=== PATIENT | female | born 1970 | race Caucasian/White ===

== ENCOUNTER 2017-11-08 12:30 | Observation (INO) | payer BC ==
[2017-11-08] MEDS ORDERED: Naloxone 0.4 MG/ML Syringe IVPUSH ONE (12:41)
[2017-11-08] MEDS ORDERED: Naloxone 0.4 MG/ML Syringe ONE (12:42)
[2017-11-08] MEDS: Naloxone 0.4 MG/ML Syringe IVPUSH ONE ×2 (12:56→15:10)
[2017-11-08] MEDS ORDERED: Ondansetron 4 MG/2 ML SDV IVPUSH ONE (12:59)
[2017-11-08 13:56] LABS: CHLORIDE,CL 92 mmol/L (98-107); SODIUM,NA 131 mmol/L (136-145)
--- NOTE | 2017-11-08 13:57 | CT ---
EXAMINATION: Non contrast CT head. Coronal and sagittal reformats. HISTORY: Altered mental status FINDINGS: No evidence of intra or extra axial hemorrhage, mass, midline shift, hydrocephalus or edema. No hypoattenuation changes in the major vascular territories to suggest acute infarct. No abnormal intracranial calcifications are detected. No evidence of substantial vascular calcifications. Paranasal sinuses and mastoid air cells are well aerated without substantial findings. Orbits and globes are symmetric. Pituitary fossa appears unremarkable. Calvarium is intact. No evidence of skull fracture. IMPRESSION: No acute intracranial findings.
--- NOTE | 2017-11-08 14:43 | CR ---
EXAMINATION: Portable chest radiograph. HISTORY: Shortness of breath. FINDINGS: The trachea is midline. The cardiomediastinal silhouette is within normal limits. No pulmonary infiltrates, effusions or pneumothorax. Osseous structures appear unremarkable. IMPRESSION: No acute cardiopulmonary process.
[2017-11-08] MEDS ORDERED: Polyethylene Glycol 3350 Powder 17 GM Packet PO PRN (15:24)
[2017-11-08] MEDS ORDERED: Docusate Sodium 100 MG Cap PO PRN (15:24)
[2017-11-08] MEDS ORDERED: Ondansetron 4 MG/2 ML SDV IVPUSH PRN (15:24)
[2017-11-08] MEDS ORDERED: Ondansetron 4 MG Tab.DIS PO PRN (15:24)
[2017-11-08] MEDS ORDERED: Enoxaparin 40 MG/0.4 ML Syringe SUBCUT SCH (15:30)
[2017-11-08] MEDS ORDERED: Sodium Chloride 0.9% 1,000 ML IV SCH (15:30)
[2017-11-08] MEDS ORDERED: Iopamidol 755 MG/ML 500 ML Multipack Bottle IVPUSH STA (16:01)
[2017-11-08] MEDS ORDERED: Sodium Chloride 0.9% 1,000 ML IV ONE ×2 (16:07→19:09)
--- NOTE | 2017-11-08 16:25 | CT ---
CT of the abdomen and pelvis with and without contrast. HISTORY: Pain TECHNIQUE: Axial CT images were obtained of the abdomen and pelvis before and following the administration of 100 mL of Isovue-370. Coronal and sagittal reconstructions obtained. FINDINGS: The lung bases are clear, no pleural effusion. The liver, spleen, adrenal glands, and pancreas appear unremarkable for noncontrast examination. Cholecystectomy clips are noted. There is no bulky retroperitoneal lymphadenopathy. No abdominal ascites. There are no calcifications noted within the kidneys or along the courses of the ureters bilaterally. The kidneys otherwise enhance and function symmetrically without evidence of obstructive uropathy. The large and small bowel are normal in caliber without evidence of obstruction. The appendix appears normal. There is no bulky pelvic lymphadenopathy. No free fluid. No free air. There is a Robertson catheter within the urinary bladder. Several right ovarian cysts are noted measuring up to 5.1 x 3.6 cm. The visualized osseous structures appear normal. IMPRESSION: 1. No acute findings within the abdomen or pelvis. 2. Several small right ovarian cyst measuring up to 5 x 3.6 cm. Follow-up in several menstrual cycles with ultrasound may be beneficial.
--- NOTE | 2017-11-08 18:46 | PCM.HP ---
H&P History of Present Illness - General Date of Service: 11/08/17 Admit Problem/Dx: Admission Diagnosis/Problem Admission Diagnosis/Problem Altered mental status - History of Present Illness Initial Comments - Free Text/Narative: Tracy Connor is a 47 y/o female who presented to the ER complaning of nausea and projectile vomiting. The patient states she was feeling fine until yesterday when she drank 6 beers with her friends and then went home and had her left over soup from few days ago. She then proceeded to take one pill of tramadol for her back pain. Soon after taking the tramadol she started feeling nauseous and having projectile vomiting. No blood in emesis. No abdoinal pain or diarrhea. she states she could not hold anything down. Denies any illicit drug use. No one else is sick at home. She was the only one who had the left over soup. Denies any abdominal pain, dysuria, diarrhea. No chest pain or shortness of breath. In the ER, the patient was started on BiPAP due to being hypercapnic. In addition, she was somewhat lethargic and was administered 3 doses of narcan which helped her wake up. 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 Headache Pain Score (Numeric/FACES): 2 - Related Data Allergies/Adverse Reactions: Allergies Allergy/AdvReac Type Severity Reaction Status Date / Time cephalexin monohydrate Allergy Hives Verified 11/08/17 12:42 [From Keflex] hydrocodone Allergy Other Verified 11/08/17 12:42 Penicillins Allergy Difficulty Verified 11/08/17 12:42 Swallowing shellfish derived Allergy Facial Verified 11/08/17 12:42 Swelling Home Medications: Home Meds Albuterol [Ventolin HFA] 2 puff INH Q6H 06/11/13 [History] Spironolactone [Aldactone] 50 mg PO DAILY 06/11/13 [History] Venlafaxine [Effexor] 75 mg PO DAILY 06/11/13 [History] Diltiazem HCl [Diltiazem 24Hr ER] 180 mg PO DAILY 12/13/15 [History] Hydrochlorothiazide 25 mg PO DAILY 12/13/15 [History] predniSONE [Prednisone] 10 - 60 mg PO DAILY #21 tablet 12/14/15 [Rx] Pantoprazole Sodium [Protonix] 20 mg PO DAILY 11/08/17 [History] Past Medical History HEENT History: Reports: Impaired Vision Other HEENT History: wears glasses Cardiovascular History: Reports: Hypertension Other Cardiovascular History: PAT Respiratory History: Reports: Asthma [employer] History: Reports: Psychiatric History: Reports: Depression Endocrine/Metabolic History: Reports: Diabetes, Type II, Obesity/BMI 30+ - Infectious Disease History Infectious Disease History: Reports: Chicken Pox, Mumps - Past Surgical History HEENT Surgical History: Reports: Adenoidectomy, Tonsillectomy GI Surgical History: Reports: Cholecystectomy Female Surgical History: Reports: Section, Other (See Below) Musculoskeletal Surgical History: Reports: Shoulder Surgery Social & Family History - Family History Family Medical History: Noncontributory - Tobacco Use Smoking Status *Q: Current Every Day Smoker Years of Tobacco use: 15 Packs/Tins Daily: 1 - Caffeine Use Caffeine Use: Reports: Coffee - Recreational Drug Use Recreational Drug Use: No H&P Review of Systems - Review of Systems: Review Of Systems: ROS reveals no pertinent complaints other than HPI. Exam - Exam Exam: See Below - Vital Signs Vital Signs: Last Vital Signs Temp 35.8 C 11/08/17 12:33 Pulse 79 11/08/17 16:21 Resp 15 11/08/17 16:21 BP 152/78 H 11/08/17 16:21 Pulse Ox 97 11/08/17 18:00 Weight: 118.8 kg - Exam General: Alert, Oriented, Other (on BiPAP, no distress) HEENT: Conjunctiva Clear, Pupils Equal, Pupils Reactive. No: Mucosa Moist & [place] Lungs: Clear to Auscultation, Normal Respiratory Effort, Wheezing. No: Crackles Cardiovascular: Regular Rate, Regular Rhythm GI/Abdominal Exam: Normal Bowel Sounds, Soft, Non-Tender, No Distention Extremities: Normal Inspection, Normal Range of Motion, Non-Tender, No Pedal Edema Skin: Warm, Dry Neuro Extensive - Mental Status: Alert, Oriented x3 Neuro Extensive - Motor, Sensory, Reflexes: CN II-XII Intact - Patient Data Lab Results Last 24 hrs: Laboratory Results - last 24 hr 11/08/17 11/08/17 11/08/17 Range/Units 13:06 13:06 13:06 WBC 14.71 H (4.0-11.0) K/uL RBC 4.71 (4.30-5.90) M/uL Hgb 16.2 H (12.0-16.0) g/dL Hct 45.7 (36.0-46.0) % MCV 97.0 (80.0-98.0) fL MCH 34.4 H (27.0-32.0) pg MCHC 35.4 (31.0-37.0) g/dL RDW Std Deviation 45.7 (28.0-62.0) fl RDW Coeff of Jose Armando 13 (11.0-15.0) % Plt Count 243 (150-400) K/uL MPV 8.80 (7.40-12.00) fL Neut % (Auto) 75.5 (48.0-80.0) % Lymph % (Auto) 13.7 L (16.0-40.0) % [place] % (Auto) 10.0 (0.0-15.0) % Eos % (Auto) 0.7 (0.0-7.0) % Baso % (Auto) 0.1 (0.0-1.5) % Neut # (Auto) 11.1 H (1.4-5.7) K/uL Lymph # (Auto) 2.0 (0.6-2.4) K/uL [place] # (Auto) 1.5 H (0.0-0.8) K/uL Eos # (Auto) 0.1 (0.0-0.7) K/uL Baso # (Auto) 0.0 (0.0-0.1) K/uL Nucleated RBC % 0.0 /100WBC Nucleated RBCs # 0 K/uL ABG pH (7.35-7.45) ABG pCO2 (35-45) mmHG ABG pO2 (75-100) mmHG ABG HCO3 (22-26) mEq/L ABG Total CO2 ABG Base Excess (-2.0-2.0) Lactate 1.5 (0.20-2.00) mmol/L Sodium 131 L (136-145) mmol/L Potassium 4.1 (3.5-5.1) mmol/L Chloride 92 L (98-107) mmol/L Carbon Dioxide 30.5 (21.0-32.0) mmol/L BUN 10 (7.0-18.0) mg/dL Creatinine 0.8 (0.6-1.0) mg/dL Est Cr Clr Drug Dosing 76.54 mL/min Estimated GFR (MDRD) > 60.0 ml/min Glucose 165 H (74-106) mg/dL Calcium 9.1 (8.5-10.1) mg/dL Magnesium 2.3 (1.8-2.4) mg/dL Total Bilirubin 0.6 (0.2-1.0) mg/dL AST 94 H (15-37) IU/L ALT 167 H (14-63) IU/L Alkaline Phosphatase 41 L (46-116) U/L Total Protein 7.5 (6.4-8.2) g/dL Albumin 3.6 (3.4-5.0) g/dL Globulin 3.9 H (2.0-3.5) g/dL Albumin/Globulin Ratio 0.9 L (1.3-2.8) TSH 3rd Generation 2.51 (0.36-3.74) uIU/mL Urine Color Urine Appearance Urine pH (5.0-8.0) Ur Specific [place] (1.001-1.035) Urine Protein (NEGATIVE) mg/dL Urine Glucose (UA) (NEGATIVE) mg/dL Urine Ketones (NEGATIVE) mg/dL Urine Occult Blood (NEGATIVE) Urine Nitrite (NEGATIVE) Urine Bilirubin (NEGATIVE) Urine Urobilinogen (<2.0) EU/dL Ur Leukocyte Esterase (NEGATIVE) Urine RBC (0-2/HPF) Urine WBC (0-5/HPF) Ur Epithelial Cells (NONE-FEW) Amorphous Sediment (NEGATIVE) Urine Bacteria (NEGATIVE) Salicylates 3.2 (0-20) mg/dL Urine Opiates Screen (NEGATIVE) Ur Oxycodone Screen (NEGATIVE) Urine Methadone Screen (NEGATIVE) Acetaminophen 0.0 ug/mL Ur Barbiturates Screen (NEGATIVE) Ur Phencyclidine Scrn (NEGATIVE) Ur Amphetamine Screen (NEGATIVE) U Methamphetamines Scrn (NEGATIVE) U Benzodiazepines Scrn (NEGATIVE) U Cocaine Metab Screen (NEGATIVE) U Marijuana (THC) Screen (NEGATIVE) Ethyl Alcohol <3 mg/dL 11/08/17 11/08/17 11/08/17 Range/Units 13:18 14:00 14:00 WBC (4.0-11.0) K/uL RBC (4.30-5.90) M/uL Hgb (12.0-16.0) g/dL Hct (36.0-46.0) % MCV (80.0-98.0) fL MCH (27.0-32.0) pg MCHC (31.0-37.0) g/dL RDW Std Deviation (28.0-62.0) fl RDW Coeff of Jose Armando (11.0-15.0) % Plt Count (150-400) K/uL MPV (7.40-12.00) fL Neut % (Auto) (48.0-80.0) % Lymph % (Auto) (16.0-40.0) % [place] % (Auto) (0.0-15.0) % Eos % (Auto) (0.0-7.0) % Baso % (Auto) (0.0-1.5) % Neut # (Auto) (1.4-5.7) K/uL Lymph # (Auto) (0.6-2.4) K/uL [place] # (Auto) (0.0-0.8) K/uL Eos # (Auto) (0.0-0.7) K/uL Baso # (Auto) (0.0-0.1) K/uL Nucleated RBC % /100WBC Nucleated RBCs # K/uL ABG pH 7.399 (7.35-7.45) ABG pCO2 49 H (35-45) mmHG ABG pO2 81 (75-100) mmHG ABG HCO3 30 H (22-26) mEq/L ABG Total CO2 26.0 ABG Base Excess 3.9 H (-2.0-2.0) Lactate (0.20-2.00) mmol/L Sodium (136-145) mmol/L Potassium (3.5-5.1) mmol/L Chloride (98-107) mmol/L Carbon Dioxide (21.0-32.0) mmol/L BUN (7.0-18.0) mg/dL Creatinine (0.6-1.0) mg/dL Est Cr Clr Drug Dosing mL/min Estimated GFR (MDRD) ml/min Glucose (74-106) mg/dL Calcium (8.5-10.1) mg/dL Magnesium (1.8-2.4) mg/dL Total Bilirubin (0.2-1.0) mg/dL AST (15-37) IU/L ALT (14-63) IU/L Alkaline Phosphatase (46-116) U/L Total Protein (6.4-8.2) g/dL Albumin (3.4-5.0) g/dL Globulin (2.0-3.5) g/dL Albumin/Globulin Ratio (1.3-2.8) TSH 3rd Generation (0.36-3.74) uIU/mL Urine Color DARK YELLOW Urine Appearance SLT CLOUDY Urine pH 6.0 (5.0-8.0) Ur Specific [place] >= 1.030 (1.001-1.035) Urine Protein NEGATIVE (NEGATIVE) mg/dL Urine Glucose (UA) NEGATIVE (NEGATIVE) mg/dL Urine Ketones NEGATIVE (NEGATIVE) mg/dL Urine Occult Blood NEGATIVE (NEGATIVE) Urine Nitrite NEGATIVE (NEGATIVE) Urine Bilirubin NEGATIVE (NEGATIVE) Urine Urobilinogen 0.2 (<2.0) EU/dL Ur Leukocyte Esterase NEGATIVE (NEGATIVE) Urine RBC 0-2 (0-2/HPF) Urine WBC 1-3 (0-5/HPF) Ur Epithelial Cells MODERATE (NONE-FEW) Amorphous Sediment HEAVY (NEGATIVE) Urine Bacteria 2+ H (NEGATIVE) Salicylates (0-20) mg/dL Urine Opiates Screen NEGATIVE (NEGATIVE) Ur Oxycodone Screen NEGATIVE (NEGATIVE) Urine Methadone Screen NEGATIVE (NEGATIVE) Acetaminophen ug/mL Ur Barbiturates Screen NEGATIVE (NEGATIVE) Ur Phencyclidine Scrn NEGATIVE (NEGATIVE) Ur Amphetamine Screen NEGATIVE (NEGATIVE) U Methamphetamines Scrn NEGATIVE (NEGATIVE) U Benzodiazepines Scrn NEGATIVE (NEGATIVE) U Cocaine Metab Screen NEGATIVE (NEGATIVE) U Marijuana (THC) Screen NEGATIVE (NEGATIVE) Ethyl Alcohol mg/dL Result Diagrams: 11/08/17 13:06 11/08/17 13:06 Problem List Initiated/Reviewed/Updated: Yes Orders Last 24hrs: Active Orders 24 hr Category Date Time Status Patient Status [ADT] Routine ADT 11/08/17 15:24 Active Patient Status [ADT] Stat ADT 11/08/17 14:38 Active Bedrest Bedside Commode [RC] ASDIRECTED Care 11/08/17 15:24 Active Cardiac Monitoring [RC] CONTINUOUS Care 11/08/17 15:25 Active EKG Documentation Completion [RC] STAT Care 11/08/17 12:43 Active Intake and Output [RC] QSHIFT Care 11/08/17 15:25 Active Oxygen Therapy [RC] PRN Care 11/08/17 15:24 Active Pulse Oximetry [RC] CONTINUOUS Care 11/08/17 15:25 Active RT BiPAP/CPAP [RC] ASDIRECTED Care 11/08/17 13:58 Active VTE/DVT Education [RC] PER UNIT ROUTINE Care 11/08/17 15:24 Active Vital Signs [RC] Q4H Care 11/08/17 15:24 Active CULTURE BLOOD [BC] Stat Lab 11/08/17 13:06 Received CULTURE BLOOD [BC] Stat Lab 11/08/17 13:49 Received Docusate Sodium [Colace] Med 11/08/17 15:24 Active 100 mg PO BID PRN Enoxaparin [Lovenox] Med 11/08/17 15:30 Active 40 mg SUBCUT Q24H Ondansetron [Zofran ODT] Med 11/08/17 15:24 Active 4 mg PO Q4H PRN Ondansetron [Zofran] Med 11/08/17 15:24 Active 4 mg IVPUSH Q4H PRN Polyethylene Glycol 3350 [MiraLAX] Med 11/08/17 15:24 Active 17 gm PO DAILY PRN Sodium Chloride 0.9% [Normal Saline] 1,000 ml Med 11/08/17 15:30 Active IV BOLUS Blood Culture x2 Reflex Set [OM.PC] Stat Oth 11/08/17 13:00 Ordered Resuscitation Status Routine Resus Stat 11/08/17 15:24 Ordered Medication Orders Docusate Sodium (Colace) 100 mg PO BID PRN PRN Reason: Constipation Enoxaparin Sodium (Lovenox) 40 mg SUBCUT Q24H YVONNE Last Admin: 11/08/17 16:06 Dose: 40 mg Sodium Chloride (Normal Saline) 1,000 mls @ 999 mls/hr IV BOLUS YVONNE Ondansetron HCl (Zofran Odt) 4 mg PO Q4H PRN PRN Reason: nausea, able to take PO Ondansetron HCl (Zofran) 4 mg IVPUSH Q4H PRN PRN Reason: Nausea Polyethylene Glycol (Miralax) 17 gm PO DAILY PRN PRN Reason: Constipation Assessment/Plan Comment:: Assessment: 1. Nausea, vomiting 2. Hypercapnia 3. Leukocytosis 4. Erythrocytosis 4. Hyponatremia 5. Elevated LFTs 6. PMH of ROME Plan: 1. Admit as observation to ICU 2. Vitals and I/O's per floor routine 3. Diet: full liquid 4. Activity: ad rani 5. DVT prophylaxis: Lovenos 6. Code status: FULL CODE 1. nausea, vomiting- I suspect that her symptoms are due acute gastroenteritis. Will continue to monitor. Supportive therapy for now with full liquid diet. Will advance diet as tolerated. Zofran PRN. 2. Hypercapnia- I suspect that this is her normal level since she does have a history of ROME. In addition, she may have a component of obesity hypoventilation. For now, will continue with BiPAP and try to take her off tomorrow. Will repeat ABG tomorrow morning. 3. Leukocytosis- likely secondary to dehydration. Will bolus with NS 1 L and then maintenance at 200 ml/h. 4. Hyponatreamia- will monitor after NS administration. 5. Elevated LFT's- will monitor. If still elevated will check Hepatitis panel, RUQ U/S. 6. PMH of ROME- currently on BiPAP Dispo: 1-2 days.
[2017-11-08] MEDS ORDERED: Albuterol/Ipratropium 3.0-0.5 MG/3 ML Neb Soln NEB PRN (23:09)
[2017-11-09] MEDS: Sodium Chloride 0.9% 1,000 ML IV SCH ×2 (00:19→05:41)
[2017-11-09 05:42] LABS: CHLORIDE,CL 102 mmol/L (98-107); SODIUM,NA 137 mmol/L (136-145)
[2017-11-09 10:05] VITALS: BP 159/91
--- NOTE | 2017-11-13 15:28 | PCM.DCSUM1 ---
Discharge Summary - Hospital Course Free Text/Narrative:: Admission date: 11/08/17 Discharge date: 11/09/17 Admission diagnosis: 1. Nausea, vomiting 2. Hypercapnia 3. Leukocytosis 4. Hyponatremia 5. Elevated liver enzymes 6. Past medical history of obstructive sleep apnea Discharge diagnosis: 1. Nausea/vomiting, resolved 2. Hypercapnia, improved 3. Leukocytosis, resolved 4. Hyponatremia, resolved 5. Elevated liver enzymes, stable 6. Urinary tract infection 7. PMH ROME on CPAP Procedures: none Consults: none Hospital course: Tracy Connor is a 47 y/o female with history of obstructive sleep apnea who presented to the ER complaining of nasuea, vomiting and lethargic. She was administered Narcan x3 with good response. She was also started on BiPAP due to hypercapnia. The patient was admitted for nausea, vomiting. She remained on BiPAP overnight with good results which was discontinued the following morning. She was more alert and breathing room air. Satting in mid 90's. Her nausea and vomiting had resolved. She was found to have a UTI and discharged on Levaquin. She was advised to abstain from alcohol and any mood altering substances. Follow-up: 1. Follow-up with your primary care provider in 1-2 weeks. - Discharge Data Discharge Date: 11/09/17 Discharge Disposition: Home, Self-Care 01 Condition: Good - Patient Instructions Diet: Regular Diet as Tolerated Activity: As Tolerated Other/Special Instructions: smoking cessation education provided; also printed materials provided - Discharge Plan *PRESCRIPTION DRUG MONITORING PROGRAM REVIEWED*: Not Applicable *COPY OF PRESCRIPTION DRUG MONITORING REPORT IN PATIENT CHARLEY: Not Applicable Home Medications: Home Meds Albuterol [Ventolin HFA] 2 puff INH Q6H 06/11/13 [History] Spironolactone [Aldactone] 100 mg PO DAILY 06/11/13 [History] Venlafaxine [Effexor] 150 mg PO DAILY 06/11/13 [History] Diltiazem HCl [Diltiazem 24Hr ER] 240 mg PO DAILY 12/13/15 [History] Hydrochlorothiazide 25 mg PO DAILY 12/13/15 [History] Albuterol/Ipratropium [DuoNeb 3.0-0.5 MG/3 ML] 3 ml INH Q6H PRN 11/08/17 [ History] Budesonide/Formoterol [Symbicort 80-4.5 MCG] 1 puff INH BID 11/08/17 [History] Furosemide [Lasix] 20 mg PO DAILY 11/08/17 [History] Ibuprofen [Motrin] 800 mg PO TID PRN 11/08/17 [History] Pantoprazole Sodium [Protonix] 20 mg PO DAILY 11/08/17 [History] Patient Handouts: Chronic Obstructive Pulmonary Disease, [id number], Urinary Tract Infection, Adult, [id number], Sleep Apnea, [id number], CPAP and BiPAP Information, Levofloxacin tablets, Steps to Quit Smoking Referrals: [facility] [Outside] (patient confirmed she will call her appointments for follow up with PCP and sleep study) - Discharge Summary/Plan Comment DC Time >30 min.: No - Patient Data Vitals - Most Recent: Last Vital Signs Temp 36.5 C 11/09/17 08:00 Pulse 79 11/08/17 16:21 Resp 16 11/09/17 10:00 BP 159/91 H 11/09/17 10:00 Pulse Ox 96 11/09/17 10:00 Weight - Most Recent: 123.2 kg JAIME Results - Last 24 hrs: Microbiology 11/08/17 13:49 Aerobic Blood Culture - Final Blood - Venous - Lab Draw NO GROWTH AFTER 5 DAYS Anaerobic Blood Culture - Final NO GROWTH AFTER 5 DAYS 11/08/17 13:06 Aerobic Blood Culture - Final Blood - Venous NO GROWTH AFTER 5 DAYS Anaerobic Blood Culture - Final NO GROWTH AFTER 5 DAYS Med Orders - Current: Current Medications Discontinued Medications Albuterol/Ipratropium (Duoneb 3.0-0.5 Mg/3 Ml) 3 ml NEB Q4HRRT PRN PRN Reason: Wheezing Last Admin: 11/08/17 23:20 Dose: 3 ml Docusate Sodium (Colace) 100 mg PO BID PRN PRN Reason: Constipation Enoxaparin Sodium (Lovenox) 40 mg SUBCUT Q24H YVONNE Last Admin: 11/08/17 16:06 Dose: 40 mg Sodium Chloride (Normal Saline) 1,000 mls @ 999 mls/hr IV BOLUS YVONNE Sodium Chloride (Normal Saline) 1,000 mls @ 999 mls/hr IV .Bolus ONE Stop: 11/08/17 17:07 Last Admin: 11/08/17 17:03 Dose: 999 mls/hr Sodium Chloride (Normal Saline) 1,000 mls @ 200 mls/hr IV CONTINUOUS ONE Stop: 11/09/17 00:08 Last Admin: 11/08/17 19:43 Dose: 200 mls/hr Sodium Chloride (Normal Saline) 1,000 mls @ 200 mls/hr IV CONTINUOUS YVONNE Last Admin: 11/09/17 05:41 Dose: 200 mls/hr Iopamidol (Isovue Multipack-370 (76%)) 100 ml IVPUSH ONETIME STA Stop: 11/08/17 16:02 Last Admin: 11/08/17 16:01 Dose: 100 ml Naloxone HCl (Narcan) 0.2 mg IVPUSH ONETIME ONE Stop: 11/08/17 12:42 Last Admin: 11/08/17 12:53 Dose: 0.2 mg Naloxone HCl (Narcan) Confirm Administered Dose 0.4 mg .ROUTE .STK-MED ONE Stop: 11/08/17 12:43 Last Admin: 11/08/17 13:00 Dose: Not Given Naloxone HCl (Narcan) 2 mg IVPUSH ONETIME ONE Stop: 11/08/17 12:52 Last Admin: 11/08/17 12:56 Dose: 0.8 mg Ondansetron HCl (Zofran) 4 mg IVPUSH ONETIME ONE Stop: 11/08/17 13:00 Last Admin: 11/08/17 13:02 Dose: 4 mg Ondansetron HCl (Zofran Odt) 4 mg PO Q4H PRN PRN Reason: nausea, able to take PO Ondansetron HCl (Zofran) 4 mg IVPUSH Q4H PRN PRN Reason: Nausea Polyethylene Glycol (Miralax) 17 gm PO DAILY PRN PRN Reason: Constipation
== END 2017-11-09 11:33 | disposition home or self-care (01) ==
LOC: MW.ED 12:30 → MW.ICU 15:23
PROVIDERS: ADMIT Internal Medicine; ATTEND Internal Medicine
DX: R11.12 Projectile vomiting (principal); R11.0 Nausea; R06.89 Other abnormalities of breathing; D72.829 Elevated white blood cell count, unspecified; D75.1 Secondary polycythemia; E87.1 Hypo-osmolality and hyponatremia; E86.0 Dehydration; G47.33 Obstructive sleep apnea (adult) (pediatric); R94.5 Abnormal results of liver function studies; Z99.89 Dependence on other enabling machines and devices; Z88.0 Allergy status to penicillin; Z88.1 Allergy status to other antibiotic agents; Z88.5 Allergy status to narcotic agent; Z88.6 Allergy status to analgesic agent; N83.201 Unspecified ovarian cyst, right side
CPT/HCPCS: 36415; 36600; 70450; 71045; 74178; 80053; 80305; 81001; 82803; 83605; 83735; 84443; 85025; 87040; 93005; 94660; 96374; 99285; G0480; J1650; J2405; J7040; Q9967; A9270-GY; J7620-GY

== ENCOUNTER 2018-09-21 03:30 | Observation (INO) | payer OTHER, BC ==
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
[2018-09-21] MEDS ORDERED: Sodium Chloride 0.9% 1,000 ML IV ONE (04:00)
[2018-09-21 04:01] LABS: CHLORIDE,CL 90 mmol/L (98-107); SODIUM,NA 128 mmol/L (136-145)
--- NOTE | 2018-09-21 04:52 | CR ---
Indication: Trauma Technique: Chest 1 view Comparison: November 08, 2017 Findings/Impression: Prominent cardiac size. Normal pulmonary vasculature. No effusion or pneumothorax. No acute osseous abnormality. Dictated by Blanca Kruger MD @ Sep 21 2018 4:51AM Signed by Dr. Blanca Kruger @ Sep 21 2018 4:52AM
--- NOTE | 2018-09-21 04:54 | CR ---
Indication: Trauma Technique: Frontal view pelvis Comparison: CT abdomen pelvis November 08, 2017 Findings: Bones: Alignment is normal. No fractures or bone lesions. Joint spaces: Unremarkable. Soft tissues: Unremarkable. Impression: Negative. Dictated by Blanca Kruger MD @ Sep 21 2018 4:53AM Signed by Dr. Blanca Kruger @ Sep 21 2018 4:53AM
[2018-09-21] MEDS ORDERED: Iopamidol 755 MG/ML 500 ML Multipack Bottle IVPUSH ONE (05:03)
--- NOTE | 2018-09-21 05:26 | CT ---
INDICATION: Trauma TECHNIQUE: Head CT without contrast. COMPARISON: November 08, 2017 FINDINGS: CSF spaces: Within normal limits for age. Brain parenchyma: There are nonspecific low attenuation white matter changes consistent with chronic microvascular disease. No sign of mass, hemorrhage, or midline shift. Skull base and calvarium: The visualized paranasal sinuses and mastoid air cells demonstrate no acute or significant findings. The visualized orbits are grossly unremarkable. No skull fractures. There is intracranial atherosclerosis. IMPRESSION: 1. No acute findings. 2. Nonspecific white matter disease, typical of chronic microvascular disease. Please note that all CT scans at this facility use dose modulation, iterative reconstruction, and/or weight-based dosing when appropriate to reduce radiation dose to as low as reasonably achievable. Dictated by Blanca Kruger MD @ Sep 21 2018 5:25AM Signed by Dr. Blanca Kruger @ Sep 21 2018 5:25AM
[2018-09-21] MEDS ORDERED: Morphine 2 MG/ML Syringe IVPUSH ONE (05:30)
[2018-09-21] MEDS ORDERED: Morphine 2 MG/ML Syringe ONE (05:31)
--- NOTE | 2018-09-21 05:32 | CT ---
INDICATION: Trauma TECHNIQUE: CT abdomen and pelvis acquired with 100 cc Isovue IV contrast. COMPARISON: November 08, 2017 FINDINGS: Lower chest: Unremarkable. Liver: Hepatic steatosis. Spleen: Unremarkable. Pancreas: Unremarkable. Gallbladder and bile ducts: S/p cholecystectomy. Adrenal glands: Unremarkable. Kidneys: Unremarkable. GI tract: Colonic diverticulosis. Appendix is normal. Vascular structures: Mild atherosclerotic disease. Lymph nodes: Unremarkable. Miscellaneous: Unremarkable. No free air or significant free fluid. Pelvic Organs: Status post hysterectomy. Bones: Unremarkable for age. IMPRESSION: No acute injury within the abdomen or pelvis. Hepatic steatosis. Colonic diverticulosis. Status post hysterectomy and cholecystectomy. Please note that all CT scans at this facility use dose modulation, iterative reconstruction, and/or weight-based dosing when appropriate to reduce radiation dose to as low as reasonably achievable. Dictated by Blanca Kruger MD @ Sep 21 2018 5:25AM Signed by Dr. Blanca Kruger @ Sep 21 2018 5:31AM
[2018-09-21] MEDS ORDERED: fentaNYL 50 MCG/ML SDV IVPUSH ONE (05:33)
--- NOTE | 2018-09-21 05:41 | CT ---
INDICATION: Trauma TECHNIQUE: CT chest was acquired with 100 cc Isovue 370 IV contrast. COMPARISON: December 13, 2015 FINDINGS: Cardiovascular structures: Heart size is normal. Thoracic aorta and main pulmonary artery are normal in caliber. Mediastinum and mackenzie: No mass or adenopathy. Lungs: Clear. Pleura and pericardium: No effusions. Chest wall and axilla: No mass or adenopathy. Upper abdomen: Hepatic steatosis. Status post cholecystectomy. Bones: Moderate degenerative changes in the spine. No acute fracture. IMPRESSION: No acute abnormality within the chest. Hepatic steatosis. Status post cholecystectomy. Please note that all CT scans at this facility use dose modulation, iterative reconstruction, and/or weight-based dosing when appropriate to reduce radiation dose to as low as reasonably achievable. Dictated by Blanca Kruger MD @ Sep 21 2018 5:36AM Signed by Dr. Blanca Kruger @ Sep 21 2018 5:39AM
[2018-09-21] MEDS ORDERED: fentaNYL 100 MCG/2 ML SDV ONE (05:42)
--- NOTE | 2018-09-21 05:47 | CT ---
INDICATION: Trauma TECHNIQUE: CT cervical spine without contrast. COMPARISON: None FINDINGS: Vertebral alignment: Alignment is normal. Vertebrae: There are no acute fractures or suspicious bony lesions. There is an os odontoideum. Discs and facet joints: There are moderate multilevel degenerative disc and facet changes. Extraspinal findings: Paraspinous soft tissues are unremarkable. IMPRESSION: 1. No sign of acute injury. 2. Multilevel degenerative spondylosis. Please note that all CT scans at this facility use dose modulation, iterative reconstruction, and/or weight-based dosing when appropriate to reduce radiation dose to as low as reasonably achievable. Dictated by Blanca Kruger MD @ Sep 21 2018 5:46AM Signed by Dr. Blanca Kruger @ Sep 21 2018 5:46AM
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
[2018-09-21] MEDS ORDERED: Ondansetron 4 MG Tab.DIS PO PRN (08:41)
[2018-09-21] MEDS ORDERED: Bisacodyl 5 MG Tab PO PRN (08:41)
[2018-09-21] MEDS ORDERED: Temazepam 15 MG Cap PO PRN (08:41)
[2018-09-21] MEDS: Spironolactone 25 MG Tab PO SCH (09:21)
[2018-09-21] MEDS: Hydrochlorothiazide 25 MG Tab PO SCH (09:22)
[2018-09-21] MEDS: Sodium Chloride 0.9% 1,000 ML IV SCH ×3 (09:23→23:05)
[2018-09-21] MEDS: Diltiazem 120 MG Cap.CD PO SCH (09:23)
[2018-09-21] MEDS: Acetaminophen 325 MG Tab PO PRN ×3 (09:24→19:32)
[2018-09-21] MEDS: Venlafaxine 37.5 MG Tab PO SCH (09:24)
[2018-09-22] MEDS: Acetaminophen 325 MG Tab PO PRN ×3 (00:25→09:01)
[2018-09-22] MEDS: Nicotine 21 MG/24 Hr Patch TRDERM SCH ×2 (04:41→08:41)
[2018-09-22] MEDS: Sodium Chloride 0.9% 1,000 ML IV SCH (05:52)
[2018-09-22 06:38] LABS: CHLORIDE,CL 103 mmol/L (98-107); SODIUM,NA 140 mmol/L (136-145)
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
[2018-09-22 07:52] VITALS: BP 108/55
[2018-09-22] MEDS: Hydrochlorothiazide 25 MG Tab PO SCH (08:38)
[2018-09-22] MEDS: Spironolactone 25 MG Tab PO SCH (08:38)
[2018-09-22] MEDS: Venlafaxine 37.5 MG Tab PO SCH (08:38)
[2018-09-22] MEDS: Diltiazem 120 MG Cap.CD PO SCH (08:39)
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
== END 2018-09-22 09:20 | disposition home or self-care (01) ==
LOC: MW.ED 03:30 → MW.MS 06:29
PROVIDERS: ADMIT Internal Medicine; ATTEND Internal Medicine
DX: T79.6XXA Traumatic ischemia of muscle, initial encounter (principal); I10 Essential (primary) hypertension; J45.909 Unspecified asthma, uncomplicated; F32.9 Major depressive disorder, single episode, unspecified; E11.9 Type 2 diabetes mellitus without complications; F17.210 Nicotine dependence, cigarettes, uncomplicated; F10.10 Alcohol abuse, uncomplicated; E66.9 Obesity, unspecified; Z68.41 Body mass index [BMI] 40.0-44.9, adult; Z79.899 Other long term (current) drug therapy; Z79.84 Long term (current) use of oral hypoglycemic drugs; Z88.1 Allergy status to other antibiotic agents; Z88.5 Allergy status to narcotic agent; Z88.0 Allergy status to penicillin; Z91.013 Allergy to seafood
CPT/HCPCS: 36415; 70450; 71045; 71260; 72125; 72170; 74177; 80048; 80053; 80305; 81003; 82550; 83880; 84484; 85025; 85610; 86850; 86900; 86901; 96361; 96374; 97161; 99285; A9270; G0480; J2270; J3010; J7040; Q9967; G0378

== ENCOUNTER 2021-03-02 14:55 | Emergency (ER) | payer BC ==
[2021-03-02] MEDS ORDERED: Ondansetron 4 MG/2 ML SDV IVPUSH ONE (15:05)
[2021-03-02] MEDS ORDERED: fentaNYL 50 MCG/ML SDV IVPUSH ONE (15:06)
[2021-03-02] MEDS ORDERED: oxyCODONE 5 MG Tab PO ONE (16:10)
[2021-03-02 16:50] VITALS: BP 131/80; PULSE 102
== END 2021-03-02 16:45 | disposition home or self-care (01) ==
LOC: MW.ED 14:55
DX: S82.142A Displaced bicondylar fracture of left tibia, initial encounter for closed fracture (principal); E11.9 Type 2 diabetes mellitus without complications; I10 Essential (primary) hypertension; E66.9 Obesity, unspecified; Z88.0 Allergy status to penicillin; Z91.013 Allergy to seafood; Z88.5 Allergy status to narcotic agent; Z88.1 Allergy status to other antibiotic agents; Z79.899 Other long term (current) drug therapy; Z79.84 Long term (current) use of oral hypoglycemic drugs; Z68.35 Body mass index [BMI] 35.0-35.9, adult; W00.0XXA Fall on same level due to ice and snow, initial encounter
CPT/HCPCS: 73560; 96374; 96375; 99284; A9270; J2405; J3010

== ENCOUNTER 2022-05-02 08:16 | Observation (INO) | payer BC ==
[2022-05-02] MEDS ORDERED: Ipratropium 0.02% 0.5 MG/2.5 ML Neb Soln NEB ONE (08:26)
[2022-05-02] MEDS ORDERED: Albuterol 0.083% 2.5 MG/3 ML Neb Soln NEB ONE ×2 (08:26→09:46)
[2022-05-02] MEDS ORDERED: predniSONE 20 MG Tab PO ONE (08:27)
[2022-05-02 09:36] LABS: CARBON DIOXIDE,CO2 26.5 mmol/L (21.0-32.0); POTASSIUM,K 3.4 mmol/L (3.5-5.1)
[2022-05-02] MEDS ORDERED: Magnesium Sulfate/Water 2 GM in Premix Bag 1 BAG IV ONE (09:47)
[2022-05-02 13:13] LABS: CORONAVIRUS COVID-19 NAA NEGATIVE (NEGATIVE); INFLUENZA A NAA NEGATIVE (NEGATIVE); INFLUENZA B NAA NEGATIVE (NEGATIVE)
[2022-05-02] MEDS ORDERED: Albuterol 0.083% 2.5 MG/3 ML Neb Soln NEB PRN (16:00)
[2022-05-02] MEDS: Levofloxacin/Dextrose 5%-Water 750 MG in Premix Bag 1 BAG IV SCH (16:43)
[2022-05-02] MEDS ORDERED: Albuterol/Ipratropium 3.0-0.5 MG/3 ML Neb Soln NEB SCH (18:00)
[2022-05-02] MEDS: methylPREDNISolone Sodium Succinate 40 MG/1 ML SDV IVPUSH SCH (18:19)
[2022-05-02] MEDS ORDERED: Patient's Own Medication [Budesonide/Formoterol 160-4.5 MCG/Puff 6 GM Inhaler] INH SCH (21:00)
[2022-05-02] MEDS ORDERED: Acetaminophen 325 MG Tab PO PRN (22:12)
[2022-05-03] MEDS ORDERED: Albuterol 0.083% 2.5 MG/3 ML Neb Soln NEB SCH
[2022-05-03] MEDS: Albuterol 0.083% 2.5 MG/3 ML Neb Soln NEB SCH ×4 (00:17→13:20)
[2022-05-03 05:46] LABS: CARBON DIOXIDE,CO2 28.5 mmol/L (21.0-32.0); POTASSIUM,K 3.9 mmol/L (3.5-5.1)
[2022-05-03] MEDS: methylPREDNISolone Sodium Succinate 40 MG/1 ML SDV IVPUSH SCH (06:04)
[2022-05-03] MEDS: Pantoprazole 40 MG Tab.CR PO SCH ×2 (06:05→06:44)
[2022-05-03] MEDS: Ipratropium 0.02% 0.5 MG/2.5 ML Neb Soln INH SCH ×3 (07:13→13:20)
[2022-05-03] MEDS ORDERED: Patient's Own Medication [Budesonide/Formoterol 160-4.5 MCG/Puff 6 GM Inhaler] INH SCH (09:00)
[2022-05-03] MEDS ORDERED: Venlafaxine 75 MG Cap.ER PO SCH (09:00)
[2022-05-03] MEDS ORDERED: Losartan 50 MG Tab PO SCH (09:00)
[2022-05-03 11:24] LABS: HEMOGLOBIN A1C 6.3 %
[2022-05-03 16:47] VITALS: BP 137/60; PULSE 95
[2022-05-03] MEDS: Levofloxacin/Dextrose 5%-Water 750 MG in Premix Bag 1 BAG IV SCH (16:49)
== END 2022-05-03 14:31 | disposition home or self-care (01) ==
LOC: MW.ED 08:16 → MW.MS 11:54
PROVIDERS: ADMIT Internal Medicine; ATTEND Internal Medicine
DX: J45.41 Moderate persistent asthma with (acute) exacerbation (principal); J96.01 Acute respiratory failure with hypoxia; I10 Essential (primary) hypertension; F32.A Depression, unspecified; E11.9 Type 2 diabetes mellitus without complications; Z20.822 Contact with and (suspected) exposure to COVID-19; Z88.0 Allergy status to penicillin; Z88.1 Allergy status to other antibiotic agents; Z88.5 Allergy status to narcotic agent; Z91.013 Allergy to seafood; Z79.899 Other long term (current) drug therapy
CPT/HCPCS: 0240U; 36415; 71045; 80048; 83036; 85025; 94640; 96365; 96367; 96375; 96376; 99285; A9270; G0378; J1956; J2920; J3475; 99221; 99238; J3490; J7620-GY

== ENCOUNTER 2023-05-21 07:11 | Emergency (ER) | payer BC ==
[2023-05-21] MEDS: Lidocaine 1% 5 ML VIAL INJECT ONE (08:19)
[2023-05-21 09:07] VITALS: BP 134/89; PULSE 87
== END 2023-05-21 09:07 | disposition home or self-care (01) ==
LOC: MW.ED 07:11
DX: K04.7 Periapical abscess without sinus (principal); I10 Essential (primary) hypertension; F17.210 Nicotine dependence, cigarettes, uncomplicated; J45.909 Unspecified asthma, uncomplicated; K21.9 Gastro-esophageal reflux disease without esophagitis; Z75.8 Other problems related to medical facilities and other health care; Z88.1 Allergy status to other antibiotic agents; Z88.5 Allergy status to narcotic agent; Z88.0 Allergy status to penicillin; Z91.013 Allergy to seafood; Z91.048 Other nonmedicinal substance allergy status; Z90.710 Acquired absence of both cervix and uterus; Z90.49 Acquired absence of other specified parts of digestive tract; Z79.51 Long term (current) use of inhaled steroids; Z79.899 Other long term (current) drug therapy
CPT/HCPCS: 41800; 99283; 99283-25; J3490

== ENCOUNTER 2023-09-10 07:39 | Emergency (ER) | payer BC ==
[2023-09-10 08:11] LABS: BASOPHILS ABSOLUTE AUTO 0.03 K/uL (0.00-0.20); BASOPHILS PERCENT AUTO 0.3 % (0.0-1.0); EOSINOPHILS ABSOLUTE AUTO 0.25 K/uL (0.00-0.45); EOSINOPHILS PERCENT AUTO 2.6 % (0.0-6.0); HEMATOCRIT 48.8 % (37.0-47.0); HEMOGLOBIN 16.8 g/dL (12.0-16.0); IMMATURE GRAN ABSOLUTE AUTO 0.02 K/uL (0.00-0.05); IMMATURE GRAN PERCENT AUTO 0.2 % (0.0-0.4); LYMPHOCYTES ABSOLUTE AUTO 3.42 K/uL (1.00-4.80); LYMPHOCYTES PERCENT AUTO 35.1 % (24.0-44.0); MEAN CORPUSCULAR HEMOGLOBIN 32.4 pg (28.0-32.0); MEAN CORPUSCULAR HGB CONC 34.4 g/dL (32.0-36.0); MEAN PLATELET VOLUME 8.1 fL (9.4-12.3); MONOCYTES PERCENT AUTO 9.2 % (0.0-8.0); NEUTROPHILS ABSOLUTE AUTO 5.11 K/uL (1.80-7.70); NEUTROPHILS PERCENT AUTO 52.6 % (41.0-71.0); PLATELET COUNT,PLT 239 K/uL (150-400); RED BLOOD CELL COUNT 5.19 M/uL (4.10-5.30); WHITE BLOOD CELL COUNT,WBC 9.73 K/uL (3.9-11.3)
[2023-09-10] MEDS: Aspirin 81 MG Tab.Chew PO ONE (08:17)
[2023-09-10] MEDS: Sodium Chloride 0.9% 10 ML Syringe FLUSH PRN (08:18)
[2023-09-10] MEDS: Sodium Chloride 0.9% 2.5 ML Syringe FLUSH PRN (08:18)
[2023-09-10] MEDS: Ketorolac 30 MG/ML SDV IVPUSH ONE (08:18)
[2023-09-10] MEDS: Ondansetron 4 MG/2 ML SDV IVPUSH ONE (08:18)
[2023-09-10] MEDS: Sodium Chloride 0.9% 1,000 ML IV ONE (08:22)
[2023-09-10 08:35] LABS: A/G RATIO 0.9 (0.9-1.6); ALBUMIN 3.6 g/dL (3.4-5.0); BILIRUBIN TOTAL 0.5 mg/dL (0.2-1.0); CALCIUM 9.3 mg/dL (8.5-10.1); CARBON DIOXIDE,CO2 30.7 mmol/L (21.0-32.0); CREATININE 0.9 mg/dL (0.6-1.0); EST CRCL DRUG DOSING (CG) 63.55 mL/min; POTASSIUM,K 4.1 mmol/L (3.5-5.1); PROTEIN TOTAL,TP 7.6 g/dL (6.4-8.2); TSH ULTRASENSITIVE 2.64 uIU/mL (0.36-3.74)
[2023-09-10 09:34] LABS: CORONAVIRUS COVID-19 NAA NEGATIVE (NEGATIVE); INFLUENZA A NAA NEGATIVE (NEGATIVE); INFLUENZA B NAA NEGATIVE (NEGATIVE)
[2023-09-10 10:13] VITALS: BP 134/75; PULSE 78
[2023-09-11 08:04] LABS: HEMOGLOBIN A1C 5.6 %
== END 2023-09-10 10:13 | disposition home or self-care (01) ==
LOC: MW.ED 07:39
DX: R07.9 Chest pain, unspecified (principal); I10 Essential (primary) hypertension; K21.9 Gastro-esophageal reflux disease without esophagitis; E66.9 Obesity, unspecified; Z90.49 Acquired absence of other specified parts of digestive tract; Z90.710 Acquired absence of both cervix and uterus; Z79.899 Other long term (current) drug therapy; Z79.51 Long term (current) use of inhaled steroids; Z88.1 Allergy status to other antibiotic agents; Z88.0 Allergy status to penicillin; Z88.5 Allergy status to narcotic agent; Z91.013 Allergy to seafood; Z91.09 Other allergy status, other than to drugs and biological substances; Z75.8 Other problems related to medical facilities and other health care; Z68.39 Body mass index [BMI] 39.0-39.9, adult
CPT/HCPCS: 0240U; 36415; 71045; 80053; 80061; 83036; 83880; 84443; 84484; 85025; 93005; 96361; 96374; 96375; 99285; A9270; J1885; J2405; J3490; J7030; 93010; 99284

== ENCOUNTER 2024-01-25 07:47 | Emergency (ER) | payer BC ==
[2024-01-25] MEDS ORDERED: Sodium Chloride 0.9% 10 ML Syringe FLUSH PRN (07:55)
[2024-01-25] MEDS ORDERED: Sodium Chloride 0.9% 2.5 ML Syringe FLUSH PRN (07:55)
[2024-01-25 08:47] LABS: BASOPHILS ABSOLUTE AUTO 0.02 K/uL (0.00-0.20); BASOPHILS PERCENT AUTO 0.3 % (0.0-1.0); EOSINOPHILS ABSOLUTE AUTO 0.21 K/uL (0.00-0.45); EOSINOPHILS PERCENT AUTO 2.7 % (0.0-6.0); HEMATOCRIT 44.6 % (37.0-47.0); HEMOGLOBIN 15.6 g/dL (12.0-16.0); IMMATURE GRAN ABSOLUTE AUTO 0.03 K/uL (0.00-0.05); IMMATURE GRAN PERCENT AUTO 0.4 % (0.0-0.4); LYMPHOCYTES PERCENT AUTO 31.2 % (24.0-44.0); MEAN CORPUSCULAR HEMOGLOBIN 33.1 pg (28.0-32.0); MEAN CORPUSCULAR VOLUME 94.7 fL (83.0-99.0); MEAN PLATELET VOLUME 8.2 fL (9.4-12.3); MONOCYTES ABSOLUTE AUTO 0.58 K/uL (0.00-0.80); MONOCYTES PERCENT AUTO 7.5 % (0.0-8.0); NEUTROPHILS ABSOLUTE AUTO 4.45 K/uL (1.80-7.70); NEUTROPHILS PERCENT AUTO 57.9 % (41.0-71.0); PLATELET COUNT,PLT 226 K/uL (150-400); RED BLOOD CELL COUNT 4.71 M/uL (4.10-5.30); WHITE BLOOD CELL COUNT,WBC 7.69 K/uL (3.9-11.3)
[2024-01-25] MEDS: Ondansetron 4 MG/2 ML SDV IVPUSH ONE (08:48)
[2024-01-25] MEDS: Sodium Chloride 0.9% 1,000 ML IV STA (09:06)
[2024-01-25 09:22] LABS: ALBUMIN 3.7 g/dL (3.4-5.0); BILIRUBIN TOTAL 0.5 mg/dL (0.2-1.0); CALCIUM 9.5 mg/dL (8.5-10.1); CARBON DIOXIDE,CO2 33.3 mmol/L (21.0-32.0); CREATININE 0.9 mg/dL (0.6-1.0); EST CRCL DRUG DOSING (CG) 63.55 mL/min; POTASSIUM,K 4.1 mmol/L (3.5-5.1); PROTEIN TOTAL,TP 7.4 g/dL (6.4-8.2)
[2024-01-25 09:30] LABS: APPEARANCE,URINE CLEAR; BILIRUBIN,URINE NEGATIVE (NEGATIVE); COLOR,URINE YELLOW; GLUCOSE,URINE NEGATIVE (NEGATIVE); KETONES,URINE NEGATIVE (NEGATIVE); LEUKOCYTE ESTERASE,URINE NEGATIVE (NEGATIVE); NITRITE,URINE NEGATIVE (NEGATIVE); OCCULT BLOOD,URINE NEGATIVE (NEGATIVE); PROTEIN,URINE NEGATIVE (NEGATIVE); UROBILINOGEN,URINE 0.2 EU/dL (<2.0)
[2024-01-25 09:32] LABS: LACTIC ACID 1.9 mmol/L (0.4-2.0)
[2024-01-25] MEDS: Acetaminophen 325 MG Tab PO ONE (10:35)
[2024-01-25] MEDS: Iopamidol 755 MG/ML 500 ML Multipack Bottle IVPUSH STA (10:57)
[2024-01-25 11:05] LABS: BASOPHILS ABSOLUTE AUTO 0.03 K/uL (0.00-0.20); BASOPHILS PERCENT AUTO 0.4 % (0.0-1.0); EOSINOPHILS ABSOLUTE AUTO 0.16 K/uL (0.00-0.45); EOSINOPHILS PERCENT AUTO 1.9 % (0.0-6.0); HEMATOCRIT 41.8 % (37.0-47.0); HEMOGLOBIN 14.4 g/dL (12.0-16.0); IMMATURE GRAN ABSOLUTE AUTO 0.02 K/uL (0.00-0.05); IMMATURE GRAN PERCENT AUTO 0.2 % (0.0-0.4); LYMPHOCYTES ABSOLUTE AUTO 2.74 K/uL (1.00-4.80); LYMPHOCYTES PERCENT AUTO 33.3 % (24.0-44.0); MEAN CORPUSCULAR HEMOGLOBIN 32.6 pg (28.0-32.0); MEAN CORPUSCULAR HGB CONC 34.4 g/dL (32.0-36.0); MEAN CORPUSCULAR VOLUME 94.6 fL (83.0-99.0); MEAN PLATELET VOLUME 8.1 fL (9.4-12.3); MONOCYTES ABSOLUTE AUTO 0.56 K/uL (0.00-0.80); MONOCYTES PERCENT AUTO 6.8 % (0.0-8.0); NEUTROPHILS ABSOLUTE AUTO 4.73 K/uL (1.80-7.70); NEUTROPHILS PERCENT AUTO 57.4 % (41.0-71.0); PLATELET COUNT,PLT 220 K/uL (150-400); RED BLOOD CELL COUNT 4.42 M/uL (4.10-5.30); WHITE BLOOD CELL COUNT,WBC 8.24 K/uL (3.9-11.3)
[2024-01-25] MEDS: Ciprofloxacin 500 MG Tab PO ONE (11:21)
[2024-01-25] MEDS: metroNIDAZOLE 250 MG Tab PO ONE (11:21)
[2024-01-25 12:08] VITALS: BP 112/63; PULSE 85
== END 2024-01-25 12:07 | disposition home or self-care (01) ==
LOC: MW.ED 07:47
DX: K92.1 Melena (principal); R11.2 Nausea with vomiting, unspecified; I10 Essential (primary) hypertension; J45.909 Unspecified asthma, uncomplicated; E66.9 Obesity, unspecified; Z88.0 Allergy status to penicillin; Z88.1 Allergy status to other antibiotic agents; Z88.5 Allergy status to narcotic agent; Z91.048 Other nonmedicinal substance allergy status; Z91.013 Allergy to seafood; Z90.710 Acquired absence of both cervix and uterus; Z68.38 Body mass index [BMI] 38.0-38.9, adult
CPT/HCPCS: 36415; 74177; 80053; 81003; 83605; 83690; 84702; 85025; 86850; 86900; 86901; 96361; 96374; 99284; A9270; J2405; J7030; Q9967

== ENCOUNTER 2024-04-23 07:47 | Emergency (ER) | payer BC ==
[2024-04-23 08:05] LABS: BASOPHILS ABSOLUTE AUTO 0.02 K/uL (0.00-0.20); BASOPHILS PERCENT AUTO 0.2 % (0.0-1.0); EOSINOPHILS ABSOLUTE AUTO 0.16 K/uL (0.00-0.45); EOSINOPHILS PERCENT AUTO 1.8 % (0.0-6.0); HEMOGLOBIN 15.7 g/dL (12.0-16.0); IMMATURE GRAN ABSOLUTE AUTO 0.02 K/uL (0.00-0.05); IMMATURE GRAN PERCENT AUTO 0.2 % (0.0-0.4); LYMPHOCYTES ABSOLUTE AUTO 2.48 K/uL (1.00-4.80); LYMPHOCYTES PERCENT AUTO 27.7 % (24.0-44.0); MEAN CORPUSCULAR HEMOGLOBIN 32.5 pg (28.0-32.0); MEAN CORPUSCULAR HGB CONC 34.9 g/dL (32.0-36.0); MEAN CORPUSCULAR VOLUME 93.2 fL (83.0-99.0); MEAN PLATELET VOLUME 8.1 fL (9.4-12.3); MONOCYTES ABSOLUTE AUTO 0.71 K/uL (0.00-0.80); MONOCYTES PERCENT AUTO 7.9 % (0.0-8.0); NEUTROPHILS ABSOLUTE AUTO 5.56 K/uL (1.80-7.70); NEUTROPHILS PERCENT AUTO 62.2 % (41.0-71.0); PLATELET COUNT,PLT 250 K/uL (150-400); RED BLOOD CELL COUNT 4.83 M/uL (4.10-5.30); WHITE BLOOD CELL COUNT,WBC 8.95 K/uL (3.9-11.3)
[2024-04-23] MEDS ORDERED: Nitroglycerin 0.4 MG Tab.SL SL PRN (08:06)
[2024-04-23] MEDS: Aspirin 81 MG Tab.Chew PO ONE (08:16)
[2024-04-23 08:39] LABS: ALBUMIN 3.8 g/dL (3.4-5.0); BILIRUBIN TOTAL 0.6 mg/dL (0.2-1.0); CARBON DIOXIDE,CO2 29.2 mmol/L (21.0-32.0); CREATININE 0.9 mg/dL (0.6-1.0); EST CRCL DRUG DOSING (CG) 62.8 mL/min; MAGNESIUM 1.9 mg/dL (1.8-2.4); POTASSIUM,K 3.9 mmol/L (3.5-5.1); PROTEIN TOTAL,TP 7.7 g/dL (6.4-8.2)
[2024-04-23] MEDS: fentaNYL 50 MCG/ML SDV IVPUSH ONE (09:21)
[2024-04-23 11:57] VITALS: BP 115/66; PULSE 94
== END 2024-04-23 12:06 | disposition home or self-care (01) ==
LOC: MW.ED 07:47
DX: I44.7 Left bundle-branch block, unspecified (principal); I20.9 Angina pectoris, unspecified; I11.0 Hypertensive heart disease with heart failure; I50.9 Heart failure, unspecified; F41.9 Anxiety disorder, unspecified; K21.9 Gastro-esophageal reflux disease without esophagitis; E66.9 Obesity, unspecified; Z90.49 Acquired absence of other specified parts of digestive tract; Z86.79 Personal history of other diseases of the circulatory system; Z90.710 Acquired absence of both cervix and uterus; Z79.899 Other long term (current) drug therapy; Z88.0 Allergy status to penicillin; Z88.5 Allergy status to narcotic agent; Z91.030 Bee allergy status; Z88.8 Allergy status to other drugs, medicaments and biological substances; Z88.1 Allergy status to other antibiotic agents; Z68.38 Body mass index [BMI] 38.0-38.9, adult
CPT/HCPCS: 36415; 71045; 80053; 83690; 83735; 83880; 84484; 85025; 85610; 93005; 96374; 99285; A9270; J3010; 93010; 99284

== ENCOUNTER 2024-07-04 07:26 | Day surgery (SDC) | payer BC ==
[2024-07-04] MEDS ORDERED: Lidocaine 1% 5 ML VIAL ONE (07:57)
[2024-07-04] MEDS ORDERED: propofoL 500 MG/50 ML 50 ML ONE (07:57)
[2024-07-04] MEDS: Lactated Ringers 1,000 ML IV SCH (08:00)
[2024-07-04] MEDS ORDERED: Propofol 200 MG/20 ML SDV ONE ×2 (09:34→09:52)
[2024-07-04 10:59] VITALS: BP 113/50; PULSE 75
== END 2024-07-04 10:50 | disposition home or self-care (01) ==
LOC: MW.SDS 07:26
PROVIDERS: ATTEND Surgery
DX: D12.5 Benign neoplasm of sigmoid colon (principal); K21.00 Gastro-esophageal reflux disease with esophagitis, without bleeding; K44.9 Diaphragmatic hernia without obstruction or gangrene; K57.30 Diverticulosis of large intestine without perforation or abscess without bleeding; J44.9 Chronic obstructive pulmonary disease, unspecified; E78.5 Hyperlipidemia, unspecified; E11.9 Type 2 diabetes mellitus without complications; Z79.85 Long-term (current) use of injectable non-insulin antidiabetic drugs; Z79.899 Other long term (current) drug therapy; Z88.0 Allergy status to penicillin; Z91.013 Allergy to seafood; Z88.5 Allergy status to narcotic agent
CPT/HCPCS: 43239; 45380; 45385; J2003; J2704; J7120; 00813

== ENCOUNTER 2024-12-19 07:51 | Day surgery (SDC) | payer BC ==
[2024-12-19] MEDS: Lactated Ringers 1,000 ML IV SCH (08:15)
[2024-12-19] MEDS ORDERED: Ondansetron 4 MG/2 ML SDV ONE (10:09)
[2024-12-19] MEDS ORDERED: propofoL 500 MG/50 ML 50 ML ONE (10:09)
[2024-12-19] MEDS ORDERED: fentaNYL 100 MCG/2 ML SDV ONE (10:10)
[2024-12-19 11:38] VITALS: BP 107/57; PULSE 87
== END 2024-12-19 11:35 | disposition home or self-care (01) ==
LOC: MW.SDS 07:51
PROVIDERS: ATTEND Surgery
DX: K57.31 Diverticulosis of large intestine without perforation or abscess with bleeding (principal); I10 Essential (primary) hypertension; E11.9 Type 2 diabetes mellitus without complications; E66.9 Obesity, unspecified; F17.210 Nicotine dependence, cigarettes, uncomplicated; Z68.41 Body mass index [BMI] 40.0-44.9, adult; Z88.8 Allergy status to other drugs, medicaments and biological substances; Z88.5 Allergy status to narcotic agent; Z88.0 Allergy status to penicillin; Z91.041 Radiographic dye allergy status; Z91.013 Allergy to seafood; Z79.899 Other long term (current) drug therapy
CPT/HCPCS: 00811; J2003; J2371; J2405; J2704; J3010; J7120